=== PATIENT | female | born 1965 | race African-American/Black ===

== ENCOUNTER 2025-03-03 14:22 | Outpatient (AMB) | payer OTHER, SELFPAY ==
[2025-03-03 14:42] VITALS: BMI 47.5
--- NOTE | 2025-03-03 14:42 | A.PHYSOV_ITS ---
Vital Signs 03/03/25 14:42 Height 5 ft 2.5 in Weight 264 lb BMI 47.5 Intake Visit Reasons: Follow up for back pain discuss injection Intake Note: Patient is a 59 year old female here today for back pain. Patient would like another injection. Sheriff'S Officer Required: No Allergies latex Allergy (Unknown, Verified 03/03/25 14:43) Unknown tomato Allergy (Unknown, Verified 03/03/25 14:43) Unknown HPI Comments Details: History of Present Illness The patient is a 59-year-old female presenting for management of worsening chronic low back pain. She reports her back has been killing her, with the pain worsening significantly over the last two weeks to become the worst it has been. The pain is localized to her left side and does not radiate down her leg or into her groin. Functionally, the pain has made it difficult for her to bend, requiring her mother's assistance to put on socks. Previous injections provided some help, but the last one in November was less effective. She has been using marijuana for pain relief, which she finds h elpful. She denies being diabetic. The patient also discusses her struggles with weight, noting she has fluctuated for years, losing and gaining it back. She recently gained 10 pounds and now weighs 262 lbs, and she believes the extra weight puts more pressure on her back. A planned sleeve gastrectomy was canceled because she had regained weight. She reports significant life stressors, including being the primary caregiver for her mother, grieving the loss of her brother, and an impending move. 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 Patient underwent left L4-5, L5-S1 facet injection on 11/08/2024 with 50% reduction of her pain. Pain has returned despite performing her physician directed home exercise plan and using her medications as prescribed. She is requesting repeat facet injection. Pain Description - Location: Pain is localized to the left side of her lower back. - Quality: Described as a killing and so painful sensation. - Severity: The pain has been severe for months, with a significant worsening over the last two weeks, becoming the worst it has been. - Radiation: Pain does not radiate into the groin or leg. - Exacerbating Factors: Bending exacerbates the pain. - Relieving Factors: Patient reports that smoking marijuana helps take away the pain. - Interference with Activities: The pain interferes with activities of daily living, such as bending to put on socks, and has caused her to stay in bed later in the morning. Results [facility] Surgical History Previous section Social History Alcohol intake: current Alcohol intake frequency: holidays/special occasions only Patient Tobacco Use Status: Never used Tobacco Use of substances other than those prescribed or required for medical reasons: Yes Substance Use Type: Marijuana Review of Systems Narrative Review of Systems - Musculoskeletal: Reports severe, worsening low back pain, localized to the left side. - Denies radiation of pain into the leg or groin. - Constitutional: Reports weight of 262 lbs with a recent gain of 10 lbs, and difficulty with weight management. - Reports change in sleep pattern due to pain. - Denies being diabetic. - Psychiatric: Reports significant stress related to caregiving, finances, and an impending move. Physical Exam Exam Exam: Physical Exam Lumbar Spine: Examination of her lumbar spine, there is no visible swelling or deformity. She is tender to left lower lumbar facets. She has full range of motion of the lumbar spine. She does have an increase in pain with facet loading. Special Tests: Lhermittes sign was negative Heel Toe walk is normal Left straight leg raise: Negative Right straight leg raise: Negative Special tests Devin test is negative Ganslen's test is negative SI Joint compression test negative Cammy test negative Piriformis stretch is negative Lower Extremities: Full range of motion bilateral lower extremities. No calf pain or edema. Neuro: Sensation: Intact to lower extremities bilaterally Strength L2 (Psoas): 5/5 on the left and 5/5 on the right. L3 (Quads): 5/5 on the left and 5/5 on the right. L4 (Ant tibialis): 5/5 on the left and 5/5 on the right. L5 (EHL) 5/5 on the left and 5/5 on the right. S1 (Gastroc): 5/5 on the left and 5/5 on the right. DTR L4: (Patellar) Left 1 Right 1 S1: (Achilles) Left 1 Right 1 Babinski Downgoing No pathologic clonus. No involuntary movement. Vital Signs: BMI result Body Mass Index 47.5 Assessment & Plan Assessment & Plan (1) Vertebrogenic low back pain: Code(s): M54.51 - Vertebrogenic low back pain Category: Medical Plan Pain Management - Affect: Patient feels she has a lot on her plate and that stress is contributing to her back pain. - Analgesia: The patient uses marijuana for pain relief, smoking it in the morning to get through the day, and finds it effective. - Activities of Daily Living: The pain has limited her movement for the past two months and makes it difficult to bend to put on socks. - She has had to change her sleep schedule, staying in bed until 7 a.m. due to pain, whereas she is usually an early riser. - Aberrant Drug-Related Behaviors: The patient obtains marijuana from a dispensary without a prescription and expressed a desire to get a medical card to reduce costs. - She states she does not like taking pills. Plan Patient was informed and verbally consented to the use of an ambient scribe for clinic note documentation during this visit. 1. Low Back Pain The patient reports worsening chronic left-sided low back pain, believed to be from arthritis. Her pain has been severe for the last two weeks, impacting her activities of daily living. She declined a prescription for prednisone, preferring to manage her pain with marijuana, which she finds effective. I will place order for left L4-5, L5-S1 facet injection per patient request as her symptoms have returned despite performing her physician directed home exercise plan.. Guidance was provided on how to obtain a medical marijuana card online in [place]. 2. Obesity The patient expresses frustration with her weight, which is currently 262 lbs after a recent 10-pound gain. She believes her weight is contributing to her back pain. She has a history of weight fluctuations and her planned sleeve gastrectomy was canceled due to weight gain. The patient plans to focus on herself and her health, including weight loss, in the coming year. 3. Stress The patient is experiencing significant stress from her role as the primary caregiver for her mother, coping with an impending move, and grieving. This stress is recognized as a likely contributor to her physical pain and overall health. The patient stated her intention to focus more on her own well-being moving forward. Discussion Notes I discussed with the patient her worsening left-sided low back pain, which I believe is due to arthritis. We discussed treatment options, and I offered a prednisone taper, but she declined as she does not like taking pills and has found significant relief from using marijuana. I reassured her that using marijuana for pain relief is acceptable and advised her on how she could obtain a medical marijuana card online in [place] to potentially lower the cost. We agreed to proceed with another injection for her back at two levels, and we are hopeful this will provide better results than her last one. Patient Instructions - We will order another injection for your low back pain. - You may continue using marijuana for pain relief as it seems to be helping you. - If you want a medical marijuana card, you can search online for medical marijuana cards [facility]. - You acknowledged the high amount of stress in your life, and it is important to find ways to take care of yourself. Coding Level of Care Code Est Pt Level 3 (37783) Diagnoses Vertebrogenic low back pain M54.51
--- OUTSIDE RECORDS SUMMARY | 2025-03-03 18:06 | XMS_ITS | Clinical Summary ---
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 Active APPLE CIDER VINEGAR ORAL Take 2 Each by mouth daily. Active vitamin C tablet Take 1 tablet (100 mg total) by mouth 1 (one) time each day. Active cholecalciferol (VITAMIN D-3) 50 mcg (2,000 unit) tablet Take by mouth. Active GARLIC ORAL Take by mouth. Active omega-3 acid ethyl esters (LOVAZA) 1 gram capsule Take by mouth. Active ondansetron (ZOFRAN) 4 mg tablet Take 1 Tablet by mouth every 8 hours as needed for Nausea. 3 Active solifenacin (VESICARE) 5 mg tablet Take 1 tablet (5 mg total) by mouth 1 (one) time each day. 90 tablet 3 4 Active clotrimazole-be tamethasone (LOTRISONE) 1-0.05 % cream Apply 2 times daily for 5-7 days as needed for itching 15 g 1 5 Active albuterol HFA (PROAIR HFA ; PROVENTIL HFA ; VENTOLIN HFA) 90 mcg/actuation inhalerIndicati ons:Dyspnea, unspecified,Oth er forms of dyspnea Inhale 2 puffs by mouth every 6 (six) hours if needed for wheezing. 1 each 5 5 04/07/19 26 Active chlorthalidone (HYGROTON) 25 mg tablet Take 1 tablet (25 mg total) by mouth 1 (one) time each day. 90 tablet 1 5 Active famotidine (PEPCID) 20 mg tablet Take 1 tablet (20 mg total) by mouth 2 (two) times a day if needed for heartburn. 180 tablet 5 Active chlorthalidone (HYGROTON) 25 mg tablet TAKE 1 TABLET BY MOUTH EVERY DAY 90 tablet 1 5 02/17/20 25 Discontinu ed(Reorder ) famotidine (PEPCID) 20 mg tablet Take 1 tablet (20 mg total) by mouth 2 (two) times a day. 180 tablet 5 02/17/20 25 Discontinu ed(Reorder ) Active Problems Problem Noted Date Diagnosed Date Microalbuminuria 06/11/2024 Morbid obesity with BMI of 40.0-44.9, adult 10/2024 Prediabetes 06/13/2023 Mixed urge and stress incontinence 03/15/2023 Overview (09/14/2024): Lumbar spondylosis 04/07/2022 Overview (09/14/2024): HLD (hyperlipidemia) 11/28/2021 Medial meniscus tear 07/15/2021 Overview (09/14/2024): 07/24 left medial meniscus tear JOHNSON (dyspnea on exertion) 06/03/2021 Overview (12/04/2023): Last Assessment & Plan: Likely multifactorial and not secondary to intrinsic pulmonary disease. Continue with the work-up by cardiology. 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 Required tuberculosis screening and QuantiFERON gold was positive. She has prior history of positive QuantiFERON gold back in 2020 and had workup with TB clinic. Patient was evaluated with the TB clinic on 05/03/2021, 07/05/2021, and on 12/27/2021. Final plan was to repeat QuantiFERON gold and if positive discuss therapy for latent TB. If negative would be discharged from TB clinic. Rheumatoid factor positive 12/15/2020 Nocturnal hypoxemia 12/13/2020 Obstructive sleep apnea 12/13/2020 Overview (12/04/2023): [facility] Home Sleep Apnea Test: Date 12/02/2020; Wt 256#; BMI 47; LAWRENCE (AHI) 16, AI 9; HI 8; Unclassified apneas 0; Obstructive apneas 92; Central apneas 7; Mixed apneas 1; hypopneas 85; average oxygen saturation 94% (lowest 63% with saturations <88% for 5% or more of study) - Obstructive Sleep Apnea - moderate; mostly obstructive apneas and hypopneas; without sleep related hypoventilation by 2020 home sleep apnea test. Last Assessment & Plan: Mild to moderate obstructive sleep apnea Patient with poor compliance of only 40% of the time more than 4 hours ESS score of 11 Advised to use the machine more than 70% of the time to meet DME requirements Return to clinic in 6 months Patient required nasal pillows and we have made a prescription. Essential (primary) hypertension 08/09/2020 Resolved Problems Problem Noted Date Diagnosed Date Resolved Date Postmenopausal bleeding 08/29/202409/02 Thickened endometrium 08/29/20242024 Class 3 severe obesity with serious comorbidity and body mass index (BMI) of 40.0 to 44.9 in adult 12/04/2023 12/31/2024 Stress incontinence 01/11/2023 06/12/19 25 Encounters Date Type Department Care Team Description 02/17/2025 Results Follow-Up Adult Medicine [address] [phone] Ange Lopez PA 02/16/2025 12:10 PM EST Lab Draw Station - [address] Screening for endocrine, metabolic and immunity disorder; Need for hepatitis B screening test 02/16/2025 11:26 AM EST - 02/16/2025 11:59 PM EST Hospital Encounter [address] [phone] Positive QuantiFERON-TB Gold test Discharge Disposition: Home or Self Care 02/16/2025 11:00 AM EST Office Visit Adult [address] [phone] Ange Lopez PA Adult general medical examination (Primary Dx); Mixed urge and stress incontinence; Essential (primary) hypertension; Mixed hyperlipidemia; Prediabetes; Positive QuantiFERON-TB Gold test; Need for hepatitis B screening test; Screening for endocrine, metabolic and immunity disorder; Screening examination for pulmonary tuberculosis; Need for hepatitis B vaccination 02/13/2025 Results Follow-Up Adult [address] [phone] Georgette Nolan MD 02/11/2025 8:50 AM EST Lab Draw Station - [address] [place] [phone] Screening examination for pulmonary tuberculosis 02/11/2025 8:00 AM EST Treatment [address] [phone] Fito Teixeira, PT Vertebrogenic low back pain (Primary Dx) 02/09/2025 7:30 AM EST Treatment [address] [phone] Seferino Conte PTA Vertebrogenic low back pain (Primary Dx) 02/09/2025 Telephone Adult [address] [phone] Georgette Nolan MD 02/04/2025 7:30 AM EST Treatment [address] [phone] Seferino Conte, CURING OVEN ATTENDANT Vertebrogenic low back pain (Primary Dx) 02/02/2025 7:30 AM EST Treatment [address] [phone] Seferino Conte, CURING OVEN ATTENDANT Vertebrogenic low back pain (Primary Dx) 01/28/2025 7:30 AM EST Treatment [address] [phone] Seferino Conte, CURING OVEN ATTENDANT Vertebrogenic low back pain (Primary Dx) 01/20/2025 7:00 AM EST Treatment [address] [phone] Seferino Conte, CURING OVEN ATTENDANT Vertebrogenic low back pain (Primary Dx) 01/13/2025 9:30 AM EST Treatment [address] [phone] Seferino Conte, CURING OVEN ATTENDANT Vertebrogenic low back pain (Primary Dx) 01/09/2025 8:30 AM EST Evaluation [address] [phone] Fito Teixeira, PT Vertebrogenic low back pain; Spondylosis, unspecified 01/07/2025 2:00 PM EST Nutrition Bariatric Surgery [address] [phone] Class 3 severe obesity with serious comorbidity and body mass index (BMI) of 45.0 to 49.9 in adult, unspecified obesity type (CMS/HCC V24, CMS/HCC V28) (Primary Dx) 12/31/2024 10:30 AM EDT Office Visit Orthopedics [address] [phone] Nehemias Barron PA Primary osteoarthritis of left knee (Primary Dx); Lumbar pain 12/31/2024 8:45 AM EDT Office Visit Adult Medicine [address] [phone] Georgette Nolan MD Essential (primary) hypertension (Primary Dx); Mixed hyperlipidemia; Prediabetes; Morbid obesity with BMI of 40.0-44.9, adult [place] [place] [facility] [place] 12/31/2024 Results Follow-Up Adult Medicine [address] [phone] Georgette Nolan MD from Last 3 Months Immunizations Immunization Administration Dates Next Due Pfizer SARS-CoV-2 COVID-19, mRNA, LNP-S, preservative free 10/12/2020 Tdap Tetanus diptheria acell ular pertussis (Boostrix; Adacel) 7yo and older 04/28/2021 Surgical History Surgery Date Site/Laterality Comments CHOLECYSTECTOMY TUBAL LIGATION BREAST BIOPSY 08/16/2021 Right : - BENIGN BREAST TISSUE WITH CALCIFICATIONS FOUND WITHIN CYSTS AND LOBULES SECTION x 2 OTHER SURGICAL HISTORY Medical History Medical History Date Comments Essential (primary) hypertension Pneumonia due to COVID-19 virus Medial meniscus tear 07/15/202107/24 left m edial meniscus tear COVID-19 long hauler manifes ting chronic dyspnea Sleep apnea Uses a CPAP Prediabetes 06/13/2023 Positive QuantiFERON-TB Gold test 12/15/2020 HLD (hyperlipidemia) 11/28/2021 Dysphagia OCCASIONALLY Diabetes mellitus ([facility] V 24, [facility] V28) PRE DIABETES Diabetes mellitus ([facility] V 24, [facility] V28) GERD (gastroesophageal reflux disease) Chronic pain disorder Arthritis Joint pain Chronic bronchitis ([facility] V24, [facility] V28) Family History Medical History Relation Name Comments Other cancer Brother unsure what kin d Asthma Father sleep apnea, pr ostate cancer Other: pacemaker Maternal Grandfather Arthritis Mother Breast cancer Paternal Grandmother Colon cancer Neg Hx Ovarian cancer Neg Hx Pancreatic cancer Neg Hx Uterine cancer Neg Hx Relation Name Status Comments Brother Father Maternal Grandfather Maternal Grandmother Mother Alive Paternal Grandmother Social History Tobacco Use Types Packs/Day Years Used Date Smoking Tobacco: Never Smokeless Tobacco: Never Tobacco Cessation:Counseling Given: Not Answered Alcohol Use Standard Drinks/Week Comments Yes 0 (1 standard drink = 0.6 oz pur e alcohol) wine 1 / wk Housing Instability Answer Date Recorde d Are you worried that in the next 2 months you may not have stable housing? Patient declined 02/16/2025 Food Access & Nutrition Answer Date Rec orded Do you have access to a vari ety of food including fruits and vegetables? Yes 02/16/2025 Access to Healthcare Answer Date Record ed Within the last 3 months, ho w many times did you visit the emergency department for your medical care? 0 02/16/2025 Health Literacy Answer Date Recorded How often do you need to hav e someone help you when you read instructions, pamphlets, or other written material from your doctor or pharmacy? Never 02/16/2025 Caregiver: How often do you need to have someone help you when you read instructions, pamphlets, or other written material from your doctor or pharmacy? Not on file 02/16/2025 Financial Risk Answer Date Recorded How hard is it for you to pa y for the very basics like food, housing, medical care, and air conditioning / heating? Patient declined 02/16/2025 Transportation Answer Date Recorded Has the lack of transportati on kept you from meetings, work, or from getting things needed for daily living? No Has the lack of transportati on kept you from medical appointments or from getting medications? No 02/16/2025 Social Isolation Answer Date Recorded How often do you feel lonely or isolated from th ose around you? Never 02/16/2025 Food Risk Answer Date Recorded Within the past 12 months we worried whether our food would run out before we got money to buy more. Never true 02/16/2025 Within the past 12 months th e food we bought just didn't last and we didn't have money to get more. Never true 02/16/2025 Dependent Care Answer Date Recorded Do you need help finding or paying for care for your loved ones. For example, early childhood specialist or elderly care for an older adult? No 02/16/2025 Education Answer Date Recorded Do you think completing more education or training, like finishing a GED, going to college, or learning a trade, would be helpful for you? No 02/16/2025 Employment and Income Answer Date Recor ded During the last four weeks, have you been actively looking for work? No 02/16/2025 Living Situation Answer Date Recorded What is your living situation? Unrecognized valu e 02/16/2025 Comments No Sex and Gender Information Value Date Recorded Sex Assigned at Female 06/30/2024 10:44 AM EDT Legal Sex Female 2:42 AM EST Gender Identity Female 06/30/2024 10:44 AM EDT Sexual Orientation Choose not to disclose 2024 10:44 AM EDT Obstetrics History Para Term AB IAB SAB Ectopic Multiple Livin g Live Births 2 2 2 0 0 0 2 2 Date Outcome GA Total Labor Labor/2nd/3rd Weight Sex Type Anes PTL Bethany A1 A5 Name Clin 1985 Term M CS-Un spec Living 1987 Term F CS-Un spec Living Last Filed Vital Signs Vital Sign Reading Time Taken Comments Blood Pressure 102/64 02/16/2025 10:50 AM EST Pulse 73 02/16/2025 10:50 AM EST Temperature 36.2 C (97.1 F) 02/16/2025 10:50 AM EST Respiratory Rate 14 02/16/2025 10:50 AM EST Oxygen Saturation 96% 02/16/2025 10:50 AM EST Inhaled Oxygen Concentration - - Weight 119 kg (262 lb 12.8 oz) 02/16/2025 10:50 AM EST Height 158.8 cm (5' 2.5 ) 02/16/2025 10:50 AM ES T Body Mass Index 47.3 02/16/2025 10:50 AM EST Plan of Treatment Upcoming Encounters Date Type Department Care Team (Late st Contact Info) Description 03/18/2025 9:45 AM EST Office Visit Pulmonology - [place] [facility] [address] [place] [phone] Alejandrina Patton MD [address] [place] [phone] 04/23/2025 4:00 PM EST Nutrition Bariatric Surgery - [place] [facility] [address] [place] [phone] Darshana Corley, CHILO [facility] [address] [place] [phone] 08/19/2025 8:30 AM EDT Office Visit Adult Medicine [facility] [address] [place], [place] [phone] Georgette Nolan MD [address] [place], [place] Health Maintenance Due Date Last Done Comments Hepatitis B Vaccines (1 of 3 - 19+ 3-dose series) 1986 Influenza Vaccine (#1) 2025 Postp oned from 11/03/2024 (Patient Refused) Hypertension/CHF/CAD Annual BMP Blood Test 12/31/2025 12/31/2024, 09/22/2024, 02/22/2024, Additional history exists Social Influencers of Health Screening 02/16/2026 02/16/2025 Breast Cancer Screening 08/28/2026 08/29/19, 08/22/2023, 08/22/2023, Additional history exists Cervical Cancer Screening: HPV 01/02/2027 01/02/2022 Cholesterol Screening (Lipid Panel) 12/31/2029 12/31/2024, 02/22/2024, 03/22/2023 DTaP,Tdap,and Td Vaccines (2 - Td or Tdap) 04/28/2031 04/28/2021 Colorectal Cancer Screening: Colonoscopy 02/21/2032 02/20/2022 Medicare Annual Wellness Visit 2032 Postponed from 02/11/2022 (Not clinically appropriate to address at this time) COVID-19 Vaccine Discontinued 10/12/2020, 09/21/2020 Hepatitis C Screening Completed 12/07/2020 Depression Screening Completed 02/16/2025, 06/13/19 HIB Vaccines Aged Out No longer eligi ble based on patient's age to complete this topic HIV Screening Discontinued HPV Vaccines Aged Out No longer eligi ble based on patient's age to complete this topic Hepatitis A Vaccines Aged Out No long er eligible based on patient's age to complete this topic IPV Vaccines Aged Out No longer eligi ble based on patient's age to complete this topic MMR Vaccines Aged Out No longer eligi ble based on patient's age to complete this topic Meningococcal ACWY Vaccine Aged Out N o longer eligible based on patient's age to complete this topic Meningococcal B Vaccine Aged Out No l onger eligible based on patient's age to complete this topic Pneumococcal Vaccine: 50+ Years Discontinued RSV Immunization Adult Patients Discontinued RSV Immunization Patients Under 20 months Aged Out No longer eligible based on patient's age to complete this topic Varicella Vaccines Aged Out No longer eligible based on patient's age to complete this topic Zoster Vaccines Discontinued Procedures Procedure Name Priority Date/Time Associated Diagnosis Comments HEPATITIS B SURFACE ANTIBODY Routine 02/16/2025 12:13 PM EST Need for hepatitis B screening test Screening for endocrine, metabolic and immunity disorder MUMPS ANTIBODY IGG Routine 02/16/2025 12 :13 PM EST Screening for endocrine, metabolic and immunity disorder RUBELLA ANTIBODY IGG Routine 02/16/2025 12:13 PM EST Screening for endocrine, metabolic and immunity disorder VARICELLA ZOSTER ANTIBODY IGG Routine 02/16/2025 12:13 PM EST Screening for endocrine, metabolic and immunity disorder RUBEOLA ANTIBODY IGG Routine 02/16/2025 12:13 PM EST Screening for endocrine, metabolic and immunity disorder XR CHEST 2 VIEWS Routine 02/16/2025 11:4 6 AM EST Positive QuantiFERON-TB Gold test INTERFERON GAMMA INTERPRETATION Routine 02/11/2025 8:49 AM EST Screening examination for pulmonary tuberculosis INTERFERON GAMMA ANTIGEN 2 Routine 02/11/2025 8:49 AM EST Screening examination for pulmonary tuberculosis INTERFERON GAMMA ANTIGEN 1 Routine 02/11/2025 8:49 AM EST Screening examination for pulmonary tuberculosis INTERFERON GAMMA MITOGEN Routine 02/11/2025 8:49 AM EST Screening examination for pulmonary tuberculosis INTERFERON GAMMA NIL Routine 02/11/2025 8:49 AM EST Screening examination for pulmonary tuberculosis INTERFERON GAMMA FOR TB, QUALITATIVE Routine 02/11/2025 8:49 AM EST Screening examination for pulmonary tuberculosis HEMOGLOBIN A1C Routine 12/31/2024 9:25 AM EDT Prediabetes BASIC METABOLIC PANEL Routine 12/31/2024 9:25 AM EDT Essential (primary) hypertension LIPID PANEL WITH REFLEX TO DIRECT LDL Routine 12/31/2024 9:25 AM EDT Mixed hyperlipidemia MG MAMMO DIGITAL SCREENING W ARPAN BILAT Routine 08/28/2024 7:49 AM EDT Encounter for screening mammogram for breast cancer HM DEPRESSION SCREENING Routine 06/13/2023 HM HPV Routine 01/02/2022 HM HEPATITIS C SCREENING Routine 12/07/2020 from Last 3 Months or Most Recently Relevant to Health Maintenance Results * Rubeola antibody IgG (02/16/2025 12:13 PM EST) Rubeola IgG Positive Positive LAB CHEMISTRY METHOD 02/17/2025 10:21 AM EST [facility] Rubeola IgG Antibody, measured 296.00 >=16.50 AU/mL LAB CHEMISTRY METHOD 02/17/2025 10:21 AM EST [facility] Blood Venous blood specimen / Unknown Venipuncture / Unknown 02/16/2025 12:13 PM EST 02/16/2025 12:13 PM EST Narrative [facility] - 02/17/2025 10:21 AM EST Interpretation >=16.5 AU/ml is considered to be consistent with Immunity us Ange CANDELARIA LAB BLOOD ORDERABLES Final Resul t [facility] [address] [place] [address], [place] [phone] * Rubella antibody IgG (02/16/2025 12:13 PM EST) Rubella IgG Quant 67.8 >=10.0 I Unit/mL 02/16/2025 5:03 PM EST [facility] Rubella IgG Antibody Interp Positive Positive 02/16/2025 5:03 PM EST [facility] Blood Venous blood specimen / Unknown Venipuncture / Unknown 02/16/2025 12:13 PM EST 02/16/2025 12:13 PM EST us Ange CANDELARIA LAB BLOOD ORDERABLES Final Resul t Performing Organization Address [facility] Co de Phone Number [facility] [address] [place] [address], [place] [phone] * Hepatitis B surface antibody (02/16/2025 12:13 PM EST) Pathologist [facility] Hepatitis B Surface Ab Negative Negative 02/16/2025 4:56 PM EST [facility] Hepatitis B Surface Ab Quantitative <3.1 mIU/mL 02/16/2025 4:56 PM EST [facility] Blood Venous blood specimen / Unknown Venipuncture / Unknown 02/16/2025 12:13 PM EST 02/16/2025 12:13 PM EST Narrative [facility] - 02/16/2025 4:56 PM EST >=10 mIU/mL is considered to be consistent with immunity. us Ange CANDELARIA LAB BLOOD ORDERABLES Final Resul t [facility] [address] [place] [address], [place] [phone] * Varicella zoster antibody IgG (02/16/2025 12:13 PM EST) Varicella IgG Positive Positive LAB CHEMISTRY METHOD 02/17/2025 10:21 AM EST [facility] Varicella Zoster IgG 7.73 >=1.00 S/CO LAB CHEMISTRY METHOD 02/17/2025 10:21 AM EST [facility] Blood Venous blood specimen / Unknown Venipuncture / Unknown 02/16/2025 12:13 PM EST 02/16/2025 12:13 PM EST Narrative [facility] - 02/17/2025 10:21 AM EST Interpretation >= 1.00 S/CO is considered to be consistent with Immunity Ange CANDELARIA LAB BLOOD ORDERABLES Final Resul t Performing Organization Address [facility] de Phone Number [facility] [address] [place] [address], * Mumps antibody IgG (02/16/2025 12:13 PM EST) Mumps IgG Positive Positive LAB CHEMISTRY METHOD 02/17/2025 10:21 AM EST [facility] Mumps IgG Antibody, measured 27.0 >=11.0 AU/mL LAB CHEMISTRY METHOD 02/17/2025 10:21 AM EST [facility] Blood Venous blood specimen / Unknown Venipuncture / Unknown 02/16/2025 12:13 PM EST 02/16/2025 12:13 PM EST Narrative [facility] - 02/17/2025 10:21 AM EST >=11 AU/mL is considered to be consistent with Immunity. us Ange CANDELARIA LAB BLOOD ORDERABLES Final Resul t Performing Organization Address [facility] Phone Number [facility] [address] [place] [address], * XR Chest 2 Views (02/16/2025 11:46 AM EST) Anatomical Region Laterality Modality Body Radiographic Hollie ging 02/16/2025 9:07 PM EST Impressions 02/16/2025 9:08 PM EST No acute cardiopulmonary process. -------- FINAL REPORT -------- Dictated By: Dyan Isidro Dictated Date: 02/16/2025 21:07 ET Assigned Physician: Dyan Isidro Reviewed and Electronically Signed By: Dyan Isidro Signed Date: 02/16/2025 21:08 ET Workstation ID: [id number] Transcribed By: Self Edit Transcribed Date: 02/16/2025 21:07 ET Narrative 02/16/2025 9:08 PM EST HISTORY: positive TB blood test TECHNIQUE: PA and lateral radiographs of the chest COMPARISON: Chest radiograph from 11/30/2020 FINDINGS: There is a normal cardiomediastinal silhouette. The lungs are clear. Moderate degenerative changes of the thoracic spine. Procedure Note Dyan Isidro MD - 02/16/2025 HISTORY: positive TB blood test TECHNIQUE: PA and lateral radiographs of the chest COMPARISON: Chest radiograph from 11/30/2020 FINDINGS: There is a normal cardiomediastinal silhouette. The lungs are clear.Moderate degenerative changes of the thoracic spine. IMPRESSION: No acute cardiopulmonary process. -------- FINAL REPORT -------- Dictated By: Dyan Isidro Dictated Date: 02/16/2025 21:07 ET Assigned Physician: Dyan Isidro Reviewed and Electronically Signed By: Dyan Isidro Signed Date: 02/16/2025 21:08 ET Workstation ID: [id number] Transcribed By: Self Edit Transcribed Date: 02/16/2025 21:07 ET Ange CANDELARIA IMG XR PROCEDURES Final Result * (ABNORMAL) Interferon gamma interpretation (02/11/2025 8:49 AM EST) Quantiferon Plus Interpretation Positive (A) Negative LAB CHEMISTRY METHOD 02/12/2025 11:28 AM EST [facility] Blood Venous blood specimen / Unknown Venipuncture / Unknown 02/11/2025 8:49 AM EST 02/11/2025 8:49 AM EST us Georgette Nolan MD LAB BLOOD ORDERABLES Final Resul t Performing Organization Address [facility] Co de Phone Number [facility] [address] [place] [address], * Interferon gamma antigen 2 (02/11/2025 8:49 AM EST) Blood Venous blood specimen / Unknown Venipuncture / Unknown 02/11/2025 8:49 AM EST 02/11/2025 8:49 AM EST us Georgette Nolan MD LAB BLOOD ORDERABLES Final Resul t Performing Organization Address [facility] Phone Number [facility] [address] [place] [address], [place] [phone] * Interferon gamma antigen 1 (02/11/2025 8:49 AM EST) Blood Venous blood specimen / Unknown Venipuncture / Unknown 02/11/2025 8:49 AM EST 02/11/2025 8:49 AM EST us Georgette Nolan MD LAB BLOOD ORDERABLES Final Resul t Performing Organization Address [facility] Co de Phone Number [facility] [address] [place] [address], [place] [phone] * Interferon gamma mitogen (02/11/2025 8:49 AM EST) Blood Venous blood specimen / Unknown Venipuncture / Unknown 02/11/2025 8:49 AM EST 02/11/2025 8:49 AM EST us Georgette Nolan MD LAB BLOOD ORDERABLES Final Resul t Performing Organization Address [facility] Co de Phone Number [facility] [address] [place] [address], [place] [phone] * Interferon gamma NIL (02/11/2025 8:49 AM EST) Blood Venous blood specimen / Unknown Venipuncture / Unknown 02/11/2025 8:49 AM EST 02/11/2025 8:49 AM EST us Georgette Nolan MD LAB BLOOD ORDERABLES Final Resul t [facility] [address] [place] [address], [place] [phone] * (ABNORMAL) Lipid panel with reflex to direct LDL (12/31/2024 9:25 AM EDT) Cholesterol 207(H) 0 - 200 mg/dL LAB CHEMISTRY METHOD 12/31/2024 3:12 PM EDT [facility] Triglycerides 119 0 - 150 mg/dL LAB CHEMISTRY METHOD 12/31/2024 3:12 PM EDT [facility] HDL 50 >=40 mg/dL LAB CHEMISTRY METHOD 12/31/2024 3:12 PM EDT [facility] LDL Calculated 133(H) 0 - 100 mg/dL LAB CHEMISTRY METHOD 12/31/2024 3:12 PM EDT [facility] Comment:Estimated LDL Calcul ated using equation: Total cholesterol - HDL cholesterol - (Triglycerides/5) VLDL Cholesterol Vicente 23.8 mg/dL LAB CHEMISTRY METHOD 12/31/2024 3:12 PM EDT [facility] Non HDL Chol. (LDL+VLDL) 157(H) <145 mg/dL LAB CHEMISTRY METHOD 12/31/2024 3:12 PM EDT [facility] Chol/HDL Ratio 4.1 0.0 - 4.4 LAB CHEMISTRY METHOD 12/31/2024 [facility] Blood Venous blood specimen / Unknown Venipuncture / Unknown 12/31/2024 9:25 AM EDT 12/31/2024 9:25 AM EDT us Georgette Nolan MD LAB BLOOD ORDERABLES Final Resul t Performing Organization Address [facility]/ZIP Co de Phone Number [facility] [address] [place] [address], [place] [phone] * Hemoglobin A1c (12/31/2024 9:25 AM EDT) Pathologist [facility] Hemoglobin A1C 6.0 <6.5 % LAB CHEMISTRY METHOD 12/31/2024 10:49 AM EDT [facility] Mean Bld Glu Estim. 126 mg/dL LAB CHEMISTRY METHOD 12/31/2024 10:49 AM EDT [facility] Blood Venous blood specimen / Unknown Venipuncture / Unknown 12/31/2024 9:25 AM EDT 12/31/2024 9:25 AM EDT us Georgette Nolan MD LAB BLOOD ORDERABLES Final Resul t Performing Organization Address [facility]/ZIP Co de Phone Number [facility] [address] [place] [address], [place] [phone] * (ABNORMAL) Basic metabolic panel (12/31/2024 9:25 AM EDT) Pathologist [facility] Sodium 137 133 - 145 mmol/L LAB CHEMISTRY METHOD 12/31/2024 3:12 PM EDT [facility] Potassium 3.6 3.5 - 5.5 mmol/L LAB CHEMISTRY METHOD 12/31/2024 3:12 PM EDT [facility] Chloride 100 96 - 110 mmol/L LAB CHEMISTRY METHOD 12/31/2024 3:12 PM EDT [facility] CO2 33(H) 21 - 32 mmol/L LAB CHEMISTRY METHOD 12/31/2024 3:12 PM EDT [facility] Anion Gap 4 3 - 11 LAB CHEMISTRY METHOD 12/31/2024 3:12 PM EDT [facility] Glucose 113(H) 70 - 100 mg/dL LAB CHEMISTRY METHOD 12/31/2024 3:12 PM EDT [facility] BUN 12 5 - 25 mg/dL LAB CHEMISTRY METHOD 12/31/2024 3:12 PM EDT [facility] Creatinine 0.79 0.50 - 1.10 mg/dL LAB CHEMISTRY METHOD 12/31/2024 3:12 PM EDT [facility] eGFR 87 >=60 mL/min/1. 73m2 LAB CHEMISTRY METHOD 12/31/2024 3:12 PM EDT [facility] Comment:Calculation based on the Chronic Kidney Disease Epidemiology Collaboration (CKD-EPI) equation refit without adjustment for race. BUN/Creatinine Ratio 15.2 LAB CHEMISTRY METHOD 12/31/2024 3:12 PM EDT [facility] Calcium 9.4 8.5 - 10.5 mg/dL LAB CHEMISTRY METHOD 12/31/2024 3:12 PM EDT [facility] Blood Venous blood specimen / Unknown Venipuncture / Unknown 12/31/2024 9:25 AM EDT 12/31/2024 9:25 AM EDT us Georgette Nolan MD LAB BLOOD ORDERABLES Final Resul t [facility] [address] [place] [address], * MG Mammo Digital Screening w Arpan bilat (08/28/2024 7:49 AM EDT) Anatomical Region Laterality Modality Breast Bilateral Mammography 08/28/2024 4:36 PM EDT Impressions 08/28/2024 4:47 PM EDT 1. No mammographic evidence of malignancy 2. Scattered fibroglandular tissue BI-RADS CATEGORY: 2 - BENIGN RECOMMENDATION: Screening bilateral mammogram is recommended in 1 year. Mammo Location: [facility], [address] [place] [address], [address], . -------- FINAL REPORT -------- Dictated By: Dyan Isidro Dictated Date: 08/28/2024 16:36 ET Assigned Physician: Dyan Isidro Reviewed and Electronically Signed By: Dyan Isidro Signed Date: 08/28/2024 16:47 ET Workstation ID: [id number] Transcribed By: Self Edit Transcribed Date: 08/28/2024 16:36 ET Narrative 08/28/2024 4:47 PM EDT A BILATERAL DIGITAL 3D SCREENING MAMMOGRAPHY HISTORY: Routine screening. Family history of breast cancer in grandmother. COMPARISON: Multiple priors dating back to 07/29/2021 Technique: Bilateral full field digital mammography (3D) was performed using standard CC and MLO projections , left cleavage view CAD was used to evaluate this mammogram. FINDINGS: Right: No suspicious masses, groups of microcalcification or areas of architectural distortion identified. Stable typically benign parenchymal asymmetries. Left: No suspicious masses, groups of microcalcification or areas of architectural distortion identified. Stable typically benign parenchymal asymmetries. BREAST DENSITY: B - There are scattered areas of fibroglandular density. Procedure Note Dyan Isidro MD - 08/28/2024 A BILATERAL DIGITAL 3D SCREENING MAMMOGRAPHY HISTORY: Routine screening. Family history of breast cancer ingrandmother. COMPARISON: Multiple priors dating back to 07/29/2021 Technique: Bilateral full field digital mammography (3D) was performedusing standard CC and MLO projections , left cleavage view CAD was used to evaluate this mammogram. FINDINGS: Right: No suspicious masses, groups of microcalcification or areas ofarchitectural distortion identified. Stable typically benign parenchymalasymmetries. Left: No suspicious masses, groups of microcalcification or areas ofarchitectural distortion identified. Stable typically benign parenchymalasymmetries. BREAST DENSITY: B - There are scattered areas of fibroglandular density. IMPRESSION: 1. No mammographic evidence of malignancy 2. Scattered fibroglandular tissue BI-RADS CATEGORY: 2 - BENIGN RECOMMENDATION: Screening bilateral mammogram is recommended in 1 year. Mammo Location: [facility], [address] [place] [address], [address], . -------- FINAL REPORT -------- Dictated By: Dyan Isidro Dictated Date: 08/28/2024 16:36 ET Assigned Physician: Dyan Isidro Reviewed and Electronically Signed By: Dyan Isidro Signed Date: 08/28/2024 16:47 ET Workstation ID: [id number] Transcribed By: Self Edit Transcribed Date: 08/28/2024 16:36 ET Georgette Nolan MD IMG BI PROCEDURES Final Result * Depression Screening (06/13/2023) Pathologist [facility] Depression Screening abstracted Historical Provider HEALTH MAINTENANCE Final Result * Cervical Cancer Screening: HPV (01/02/2022) Pathologist [facility] Cervical Cancer Screening: HPV negative, abstracted Historical Provider HEALTH MAINTENANCE Final Result * Hepatitis C Screening (12/07/2020) Pathologist [facility] Hepatitis C Screening abstracted Historical Provider HEALTH MAINTENANCE Final Result from Last 3 Months or Most Recently Relevant to Health Maintenance Insurance [facility] [employer] Member Subscriber Plan / Payer (Ef fective 2022-Present) Name:LORY LEI Relation to Subscriber:Self Name:Lory Lei Payer ID:[id number] Group ID:[id number] Type:Not on file Address: [place] [address] [address] [phone] Advance Directives * Full Code - Default (Latest Code Status on File) Date Activated Date Inactivated Comments 10/03/2024 9:30 AM 10/03/2024 4:53 PM This is order is used when code status has not been discussed with the patient, or code status is otherwise unknown/unconfirmed To update the patient's code status, place a code status order. Do not modify or discontinue any currently active code status orders. Care Teams Farm Implement Engine Mechanic Relationship Specialty Start Date End Date Georgette Nolan MD [address] [place] [address] PCP - General Internal Medicine 11/30/20
--- OUTSIDE RECORDS SUMMARY | 2025-03-03 18:06 | XMS_ITS | Encounter Summary ---
Author Organization [facility] [place] [address] Care Team Providers Care Highway Design Engineer Name Role Phone Georgette Nloan MD Primary Care Provider [phone] Encounter Details Date Type Department Care Team ([facility] st Contact Info) Description 02/17/2025 Results Follow-Up Adult Medicine [facility] [address] [place], [place] [phone] Ange Lopez PA [address] [place], [place] Social History Tobacco Use Types Packs/Day Years Used Date Smoking Tobacco: Never Smokeless Tobacco: Never Alcohol Use Standard Drinks/Week Comments Yes 0 [...] care for your loved ones. For example, children's aide or elderly care for an older adult? [...] not to disclose 2024 10:44 AM EDT documented as of this encounter Progress Notes * Yanet Alcantara - 02/25/2025 3:11 PM EST Patient is retuning a call back. * Ebonnee Raj - 02/24/2025 8:59 AM EST Patient is returning call. Please call around 9:30am. * Danya Randolph MA - 02/17/2025 1:54 PM EST Patient is returning a missed call. documented in this encounter Plan of Treatment Upcoming Encounters Date Type Department Care Team (Late st Contact Info) Description 03/18/2025 9:45 AM EST Office Visit Pulmonology - [place] 175 [facility] [address] [place] [phone] Alejandrina Patton MD [address] [place] [phone] 04/23/2025 4:00 PM EST Nutrition Bariatric Surgery - [place] 175 [facility] [address] [place] [phone] Darshana Corley, RD [address] [phone] 08/19/2025 8:30 AM EDT Office Visit Adult Medicine [facility] [address] [place], [place] [phone] Georgette Nolan MD [address] [place] [address] documented as of this encounter Visit Diagnoses Not on filedocumented in this encounter Additional Health Concerns Assessment Noted Time PHQ-9 Depression Total Score: 0 02/17/20 25 10:48 AM EST documented as of this encounter Care Teams Highway Design Engineer Relationship Specialty Start Date End Date Georgette Nolan MD [address] [place] [address] PCP - General Internal Medicine 11/30/20 documented as of this encounter
--- OUTSIDE RECORDS SUMMARY | 2025-03-03 18:06 | XMS_ITS | Encounter Summary ---
Author Organization [facility] [place] [address] Care Team Providers Care Igniter Assembler Name Role Phone Georgette Nolan MD Primary Care Provider [phone] Encounter Details Date Type Department Care Team ([facility] st Contact Info) Description 02/13/2025 Results Follow-Up Adult Medicine [facility] [address] [place] [address] Georgette Nolan MD [address] [place], [place] Social History Tobacco Use Types Packs/Day Years Used Date Smoking Tobacco: Never Smokeless Tobacco: Never Alcohol Use Standard Drinks/Week Comments Yes 0 (1 standard drink = 0.6 oz pur e alcohol) Housing Instability Answer Date Recorde d Are [...] care for your loved ones. For example, child care centre director or elderly care for an older adult? [...] AM EDT documented as of this encounter Plan of Treatment Upcoming Encounters Date Type Department Care Team (Late st Contact Info) Description 03/18/2025 9:45 AM EST Office Visit Pulmonology - [address] [place] [phone] Alejandrina Patton MD [address] [place] [address] 04/23/2025 4:00 PM EST Nutrition Bariatric Surgery - [place] [address] [phone] Jory Darshana, RD 175 [facility] [address] [place] [address] 08/19/2025 8:30 AM EDT Office Visit Adult Medicine [facility] [address] [place] [address] Georgette Nolan MD [address] [place] [address] documented as of this encounter Visit Diagnoses Not on filedocumented in this encounter Care Teams Igniter Assembler Relationship Specialty Start Date End Date Georgtete Nolan MD [address] [place] [address] PCP - General Internal Medicine 11/30/20 documented as of this encounter
--- OUTSIDE RECORDS SUMMARY | 2025-03-03 18:06 | XMS_ITS ---
Author Name [facility] Organization Unknown Care Team Organization Name Specialty Phone Email Start Date End [facility] Georgette Nolan Primary Care 07/10/2022 4
--- OUTSIDE RECORDS SUMMARY | 2025-03-03 18:06 | XMS_ITS | Encounter Summary ---
Author Organization [facility] [place] [address] Care Team Providers Care Asphalt Spreader Operator Name Role Phone Georgette Nolan MD Primary Care Provider [phone] Encounter Details Date Type Department Care Team ([facility] st Contact Info) Description 12/31/2024 Results Follow-Up Adult Medicine [facility] [address] [place] [address] Georgette Nolan MD [address] [place], [place] Social History Tobacco Use Types Packs/Day [...] your loved ones. For example, child care giver or elderly care for an older adult? [...] 9:45 AM EST Office Visit Pulmonology - [address] [place] [phone] Alejandrina Patton MD [address] [place] [address] 04/23/2025 4:00 PM EST Nutrition Bariatric Surgery - [place] [address] [phone] Jory Darshana, RD 175 [facility] [address] [place] [address] 08/19/2025 8:30 AM EDT Office Visit Adult Medicine [facility] [address] [place] [address] Georgette Nolan MD [address] [place] [address] documented as of this encounter Visit Diagnoses Not on filedocumented in this encounter Care Teams Asphalt Spreader Operator Relationship Specialty Start Date End Date Georgette Nolan MD [address] [place] [address] PCP - General Internal Medicine 11/30/20 documented as of this encounter
== END 2025-03-03 15:15 | disposition home or self-care (01) ==
LOC: HO.HPHYS 14:22
PROVIDERS: Visit Provider Physician Assistant
DX: M54.51 Vertebrogenic low back pain (principal)
CPT/HCPCS: 99213

== ENCOUNTER → 2025-03-03 14:22 | Outpatient (BNVA) | payer OTHER, SELFPAY | PROVIDERS: Visit Provider Physician Assistant | DX: M54.51 Vertebrogenic low back pain (principal); G89.29 Other chronic pain; F12.90 Cannabis use, unspecified, uncomplicated; R20.0 Anesthesia of skin; F43.9 Reaction to severe stress, unspecified; E66.9 Obesity, unspecified; Z68.42 Body mass index [BMI] 45.0-49.9, adult | CPT/HCPCS: 99212 ==